=== PATIENT | female | born 1930 | race Caucasian/White ===

== ENCOUNTER 2020-12-18 11:47 | Emergency (ER) | payer MEDICARE ==
[~2020-12-18] VITALS: Ht 167.6 cm; Wt 69.5 kg
[2020-12-18 12:30] LABS: BASOPHILS # (AUTO) 0.1 X10'3 (0-0.2); BASOPHILS % (AUTO) 1.2 % (0-1); EOSINOPHILS # (AUTO) 0.2 X10'3 (0-0.9); EOSINOPHILS % (AUTO) 2.7 % (0-6); HEMATOCRIT 45.4 % (35.0-45.0); HEMOGLOBIN 14.7 g/dl (12.0-16.0); LYMPHOCYTES # (AUTO) 1.6 X10'3 (1.1-4.8); LYMPHOCYTES % (AUTO) 20.8 % (21-51); MEAN CORPUSCULAR HEMOGLOBIN 30.7 PG (27.0-31.0); MEAN CORPUSCULAR HGB CONC 32.3 g/dL (33.0-36.5); MEAN PLATELET VOLUME 8.6 FL (7.4-10.4); MONOCYTES # (AUTO) 0.9 X10'3 (0-0.9); MONOCYTES % (AUTO) 11.5 % (2-12); NEUTROPHILS % (AUTO) 63.8 % (42-75); PLATELET COUNT 214 X10'3 (140-440); RED BLOOD COUNT 4.78 X10'6 (4.20-5.60); RED CELL DISTRIBUTION WIDTH 16.4 % (11.5-14.5); WHITE BLOOD COUNT 7.8 X10'3 (4.5-11.0)
[2020-12-18 12:59] LABS: ALANINE AMINOTRANSFERASE 67 U/L (12-78); ALBUMIN 3.5 G/DL (3.4-5.0); ALKALINE PHOSPHATASE 107 IU/L (46-116); ANION GAP 8 (8-16); ASPARTATE AMINO TRANSFERASE 42 U/L (10-37); BILIRUBIN,TOTAL 1.8 MG/DL (0.1-1.0); BLOOD UREA NITROGEN 30 MG/DL (7-18); BUN/CREATININE RATIO 20.4 (6.6-38.0); CALCIUM 9.2 MG/DL (8.5-10.1); CHLORIDE 105 MMOL/L (99-107); CREATININE 1.47 MG/DL (0.40-0.90); GLUCOSE 126 MG/DL (70-104); SODIUM 139 MMOL/L (135-145); TOTAL CARBON DIOXIDE 26.1 MMOL/L (24-32); TOTAL PROTEIN 6.9 G/DL (6.4-8.2); eGFR 33 ML/MIN
[2020-12-18 13:08] LABS: POTASSIUM 4.8 MMOL/L (3.5-5.1)
[2020-12-18] MEDS ORDERED: furosemide 10 MG/1 ML 10ml inj IV ONE (13:40)
[2020-12-18] MEDS ORDERED: aspirin 81mg tab.chew PO ONE (13:40)
[2020-12-18] MEDS ORDERED: acetaminophen 325mg tablet PO PRN (13:45)
[2020-12-18] MEDS ORDERED: magnesium hydroxide 30ml (MOM) UD suspension PO PRN (13:45)
[2020-12-18] MEDS ORDERED: mag hydrox/Alum hydrox/simeth 30ml oral suspension PO PRN (13:45)
[2020-12-18] MEDS ORDERED: ondansetron/PF 4mg/2ml inj IV PRN (13:45)
[2020-12-18] MEDS ORDERED: FURO40TA4 PO (14:05)
[2020-12-18 14:06] VITALS: BP 154/90
[2020-12-18] MEDS ORDERED: furosemide 10 MG/1 ML 10ml inj IV SCH (20:00)
[2020-12-18] MEDS ORDERED: heparin, porcine 5000 units/ml vial SQ SCH (20:00)
== END 2020-12-18 14:09 | disposition left against medical advice (07) ==
LOC: ER 11:48
DX: I11.0 Hypertensive heart disease with heart failure (principal); I50.9 Heart failure, unspecified; N28.9 Disorder of kidney and ureter, unspecified; R60.0 Localized edema; R77.8 Other specified abnormalities of plasma proteins; Z79.899 Other long term (current) drug therapy
CPT/HCPCS: 36415; 71045; 80053; 83880; 84484; 85025; 93005; 99285